=== PATIENT | male | born 1955 | race Caucasian/White ===

== ENCOUNTER 2021-08-31 16:02 | Inpatient (IN) | payer MEDICARE ==
[~2021-08-31] VITALS: Ht 193 cm; Wt 89.8 kg
[2021-09-01 06:12] LABS: HEMOGLOBIN 11.8 gm/dl (14.0-17.5); RED BLOOD COUNT 3.77 M/UL (4.20-5.50); WHITE BLOOD COUNT 15.2 K/UL (4.5-11.0)
[2021-09-01 06:49] LABS: BUN/CREATININE RATIO 21 (0-10)
[2021-09-01] MEDS ORDERED: PROAIR DIGIHAL90 MCG INH (09:45)
[2021-09-01] MEDS ORDERED: ANORO ELLIPTA1 EACH INH (09:46)
[2021-09-01] MEDS ORDERED: PROTONIX40 MG PO (09:46)
[2021-09-01] MEDS ORDERED: DAILY VALUE1 EACH PO (09:47)
[2021-09-02 05:58] LABS: BUN/CREATININE RATIO 29 (0-10)
[2021-09-02 06:06] LABS: RED BLOOD COUNT 3.25 M/UL (4.20-5.50)
[2021-09-03 05:44] LABS: BUN/CREATININE RATIO 28 (0-10)
[2021-09-04 05:46] LABS: RED BLOOD COUNT 2.73 M/UL (4.20-5.50)
[2021-09-04 06:03] LABS: BUN/CREATININE RATIO 28 (0-10)
[2021-09-05 05:40] LABS: HEMOGLOBIN 7.4 gm/dl (14.0-17.5); RED BLOOD COUNT 2.47 M/UL (4.20-5.50); WHITE BLOOD COUNT 5.6 K/UL (4.5-11.0)
[2021-09-05 06:10] LABS: BUN/CREATININE RATIO 36 (0-10)
[2021-09-06 05:16] LABS: BUN/CREATININE RATIO 39 (0-10)
[2021-09-06 09:35] LABS: HEMOGLOBIN 9.9 gm/dl (14.0-17.5); RED BLOOD COUNT 3.31 M/UL (4.20-5.50); WHITE BLOOD COUNT 9.1 K/UL (4.5-11.0)
[2021-09-07 05:18] LABS: HEMOGLOBIN 8.5 gm/dl (14.0-17.5); WHITE BLOOD COUNT 7.6 K/UL (4.5-11.0)
[2021-09-07 05:21] LABS: RED BLOOD COUNT 2.77 M/UL (4.20-5.50)
[2021-09-08 05:44] LABS: BUN/CREATININE RATIO 48 (0-10)
[2021-09-08 07:17] LABS: HEMOGLOBIN 8.1 gm/dl (14.0-17.5); RED BLOOD COUNT 2.68 M/UL (4.20-5.50); WHITE BLOOD COUNT 7.3 K/UL (4.5-11.0)
[2021-09-08 09:40] LABS: RED BLOOD COUNT 2.91 M/UL (4.20-5.50); WHITE BLOOD COUNT 8.6 K/UL (4.5-11.0)
--- NOTE | 2021-09-09 01:06 | NUR ---
02 SATS DECREASED TO 84-89% LUNG SOUNDS WITH RHONCHI AND RALES NOTED, RESPIRATIONS [address] WIGGINS NOTIFIED. ORDER RECEIVED . RESPIRATORY PRESENT, HIGH FLOW 02 APPLIED VIA CANNULA @12 LPM. STAT BNP ORDERED. WILL CONTINUE TO REMAIN AT BEDSIDE AND MONITOR.
--- NOTE | 2021-09-09 02:21 | NUR ---
RESTING EASIER . OUTPUT FROM [facility] > 1LITER @ THIS TIME. 02 SATS 99% . CURRENTLY WAITING ON BNP RESULTS.
[2021-09-09 05:31] LABS: HEMOGLOBIN 8.5 gm/dl (14.0-17.5); RED BLOOD COUNT 2.79 M/UL (4.20-5.50); WHITE BLOOD COUNT 10.8 K/UL (4.5-11.0)
[2021-09-09 05:43] LABS: BUN/CREATININE RATIO 43 (0-10)
[2021-09-10 08:41] LABS: BUN/CREATININE RATIO 46 (0-10)
[2021-09-11 04:23] LABS: HEMOGLOBIN 10.1 gm/dl (14.0-17.5)
[2021-09-11 04:25] LABS: RED BLOOD COUNT 3.3 M/UL (4.20-5.50); WHITE BLOOD COUNT 19.3 K/UL (4.5-11.0)
[2021-09-11 04:49] LABS: BUN/CREATININE RATIO 42 (0-10)
[2021-09-12 05:25] LABS: HEMOGLOBIN 9.8 gm/dl (14.0-17.5); RED BLOOD COUNT 3.23 M/UL (4.20-5.50); WHITE BLOOD COUNT 19.5 K/UL (4.5-11.0)
[2021-09-12 06:02] LABS: BUN/CREATININE RATIO 36 (0-10)
--- NOTE | 2021-09-12 16:52 | NUR ---
PATIENT ARRIVES ON FLOOR AT 1645 PER ICU STAFF. AGREE WITH ICU NURSE SERENA ASSESSMENT.
[2021-09-13 05:40] LABS: HEMOGLOBIN 10.2 gm/dl (14.0-17.5); RED BLOOD COUNT 3.37 M/UL (4.20-5.50); WHITE BLOOD COUNT 17.3 K/UL (4.5-11.0)
[2021-09-13 06:37] LABS: BUN/CREATININE RATIO 29 (0-10)
[2021-09-14 09:44] LABS: HEMOGLOBIN 10.1 gm/dl (14.0-17.5); RED BLOOD COUNT 3.3 M/UL (4.20-5.50); WHITE BLOOD COUNT 16.8 K/UL (4.5-11.0)
[2021-09-14 10:11] LABS: BUN/CREATININE RATIO 26 (0-10)
[2021-09-15 03:01] LABS: HEMOGLOBIN 9.6 gm/dl (14.0-17.5); RED BLOOD COUNT 3.15 M/UL (4.20-5.50); WHITE BLOOD COUNT 15.4 K/UL (4.5-11.0)
[2021-09-15 03:32] LABS: BUN/CREATININE RATIO 27 (0-10)
[2021-09-16 06:20] LABS: HEMOGLOBIN 8.9 gm/dl (14.0-17.5); RED BLOOD COUNT 3.02 M/UL (4.20-5.50); WHITE BLOOD COUNT 12.4 K/UL (4.5-11.0)
[2021-09-16 06:44] LABS: BUN/CREATININE RATIO 25 (0-10)
[2021-09-17 06:33] LABS: HEMOGLOBIN 8.7 gm/dl (14.0-17.5); RED BLOOD COUNT 2.88 M/UL (4.20-5.50)
[2021-09-17 07:04] LABS: BUN/CREATININE RATIO 23 (0-10)
[2021-09-18 04:44] LABS: RED BLOOD COUNT 2.98 M/UL (4.20-5.50); WHITE BLOOD COUNT 8.8 K/UL (4.5-11.0)
[2021-09-18 05:20] LABS: BUN/CREATININE RATIO 18 (0-10)
[2021-09-19 06:17] LABS: HEMOGLOBIN 9.9 gm/dl (14.0-17.5); WHITE BLOOD COUNT 7.7 K/UL (4.5-11.0)
[2021-09-19 06:19] LABS: RED BLOOD COUNT 3.34 M/UL (4.20-5.50)
[2021-09-19 06:40] LABS: BUN/CREATININE RATIO 16 (0-10)
[2021-09-20 07:36] LABS: HEMOGLOBIN 9.1 gm/dl (14.0-17.5); RED BLOOD COUNT 3.17 M/UL (4.20-5.50); WHITE BLOOD COUNT 7.6 K/UL (4.5-11.0)
[2021-09-20 07:59] LABS: BUN/CREATININE RATIO 14 (0-10)
[2021-09-21 04:02] LABS: BUN/CREATININE RATIO 14 (0-10)
--- NOTE | 2021-09-21 13:48 | NUR ---
PATIENT'S OXYGEN SATURATION 86% ON RA WITH AMBULATION AND TRANSFER FROM BED TO CHAIR.
[2021-09-21] MEDS ORDERED: LOPRESSOR 50 MG50 MG PO (14:09)
[2021-09-21] MEDS ORDERED: MYCOSTATIN100000 UTS PO (14:09)
[2021-09-21] MEDS ORDERED: FUROSEMIDE20 MG PO (14:09)
[2021-09-21] MEDS ORDERED: ATORVASTATIN CA20 MG PO (14:09)
[2021-09-21] MEDS ORDERED: AMIODARONE HCL200 MG PO (14:09)
[2021-09-21] MEDS ORDERED: ASPIRIN EC81 MG PO (14:09)
[2021-09-21] MEDS ORDERED: ACETAMINOPHEN-1 EAC1 PO (14:09)
[2021-09-21] MEDS ORDERED: BRILINTA 90 MG90 MG PO (14:09)
== END 2021-09-21 16:33 | disposition home health service (06) | DRG 270 ==
LOC: CCU 16:02 → MED SURG 4 16:02 → PROG CARE 16:02 → CDU 16:02 → CCU 22:01 → PROG CARE 09-12 16:39 → MED SURG 4 09-15 12:03
PROVIDERS: Internal Medicine; Internal Medicine Pulmonary Disease; Physician Assistant Medical; ADMIT Internal Medicine Cardiovascular Disease
PROC: 5A02210 Assistance with Cardiac Output using Balloon Pump, Continuous (ICD-10-PCS; 2021-08-31)
PROC: 027034Z Dilation of Coronary Artery, One Artery with Drug-eluting Intraluminal Device, Percutaneous Approach (ICD-10-PCS; 2021-08-31)
PROC: 3E02340 Introduction of Influenza Vaccine into Muscle, Percutaneous Approach (ICD-10-PCS; 2021-08-31)
PROC: 0BH17EZ Insertion of Endotracheal Airway into Trachea, Via Natural or Artificial Opening (ICD-10-PCS; 2021-08-31)
PROC: 5A1955Z Respiratory Ventilation, Greater than 96 Consecutive Hours (ICD-10-PCS; 2021-08-31)
PROC: B24BZZZ Ultrasonography of Heart with Aorta (ICD-10-PCS; 2021-08-31)
PROC: 4A023N7 Measurement of Cardiac Sampling and Pressure, Left Heart, Percutaneous Approach (ICD-10-PCS; 2021-08-31)
PROC: B2111ZZ Fluoroscopy of Multiple Coronary Arteries using Low Osmolar Contrast (ICD-10-PCS; 2021-08-31)
PROC: B2151ZZ Fluoroscopy of Left Heart using Low Osmolar Contrast (ICD-10-PCS; 2021-08-31)
PROC: 0DH63UZ Insertion of Feeding Device into Stomach, Percutaneous Approach (ICD-10-PCS; principal; 2021-09-05)
PROC: 3E0G76Z Introduction of Nutritional Substance into Upper GI, Via Natural or Artificial Opening (ICD-10-PCS; principal; 2021-09-05)
PROC: 5A09357 Assistance with Respiratory Ventilation, Less than 24 Consecutive Hours, Continuous Positive Airway Pressure (ICD-10-PCS; 2021-09-10)
PROC: 02703ZZ Dilation of Coronary Artery, One Artery, Percutaneous Approach (ICD-10-PCS; 2021-09-14)
PROC: 4A023N7 Measurement of Cardiac Sampling and Pressure, Left Heart, Percutaneous Approach (ICD-10-PCS; 2021-09-14)
PROC: B2111ZZ Fluoroscopy of Multiple Coronary Arteries using Low Osmolar Contrast (ICD-10-PCS; 2021-09-14)
PROC: 5A0935A Assistance with Respiratory Ventilation, Less than 24 Consecutive Hours, High Flow/Velocity Cannula (ICD-10-PCS; 2021-09-16)
DX: I21.09 ST elevation (STEMI) myocardial infarction involving other coronary artery of anterior wall (principal); R57.0 Cardiogenic shock; I50.21 Acute systolic (congestive) heart failure; Z20.822 Contact with and (suspected) exposure to COVID-19; J96.01 Acute respiratory failure with hypoxia; G92.8 Other toxic encephalopathy; J18.9 Pneumonia, unspecified organism; A41.9 Sepsis, unspecified organism; I47.1 Supraventricular tachycardia; J44.0 Chronic obstructive pulmonary disease with (acute) lower respiratory infection; B37.0 Candidal stomatitis; R47.01 Aphasia; E87.0 Hyperosmolality and hypernatremia; J44.1 Chronic obstructive pulmonary disease with (acute) exacerbation; C34.90 Malignant neoplasm of unspecified part of unspecified bronchus or lung; D62 Acute posthemorrhagic anemia; R04.89 Hemorrhage from other sites in respiratory passages; R53.81 Other malaise; F17.210 Nicotine dependence, cigarettes, uncomplicated; I11.0 Hypertensive heart disease with heart failure; E87.8 Other disorders of electrolyte and fluid balance, not elsewhere classified; F03.90 Unspecified dementia, unspecified severity, without behavioral disturbance, psychotic disturbance, mood disturbance, and anxiety; K21.9 Gastro-esophageal reflux disease without esophagitis; R27.0 Ataxia, unspecified; R13.10 Dysphagia, unspecified; E87.6 Hypokalemia; I48.0 Paroxysmal atrial fibrillation; I25.5 Ischemic cardiomyopathy; Z99.3 Dependence on wheelchair; Z79.01 Long term (current) use of anticoagulants; Z79.82 Long term (current) use of aspirin; Z82.49 Family history of ischemic heart disease and other diseases of the circulatory system; Z23 Encounter for immunization
CPT/HCPCS: ECHO; 31500; 36415; 36600; 70450; 71045; 72131; 74230; 80048; 80053; 80061; 80076; 80202; 81001; 82140; 82550; 82553; 82803; 82962; 83036; 83540; 83550; 83605; 83735; 83880; 84100; 84132; 84439; 84443; 84484; 84550; 85025; 85027; 85347; 86140; 87040; 87070; 87086; 87205; 90686; 92526; 92610; 92611-GN; 92920; 93005; 93306; 93308; 93880; 94002; 94003; 94640; 94660; 94664; 94760; 97110; 97110-GP-CQ; 97116; 97116-GP-CQ; 97162; 97166; 97530; 97530-GP-CQ; 97535; 99152; 99153; C1725; C1753; C1769; C1874; C1887; C1894; C9113; G0008; J0171; J0330; J0360; J0461; J0583; J0610; J1160; J1205; J1250; J1265; J1335; J1644; J1650; J1940; J2250; J2270; J2370; J2405; J2704; J3010; J3246; J3370; J3480; J7030; J7040; J7050; J7070; Q9965; Q9967

== ENCOUNTER → 2021-10-07 | Outpatient (CLI) | payer MEDICARE ==
[~2021-10-07] MED LIST: ACETAMINOPHEN-1 EAC1 PO; AMIODARONE HCL200 MG PO; ANORO ELLIPTA1 EACH INH; ASPIRIN EC81 MG PO; ATORVASTATIN CA20 MG PO; BRILINTA 90 MG90 MG PO; DAILY VALUE1 EACH PO; FUROSEMIDE20 MG PO; LOPRESSOR 50 MG50 MG PO; MYCOSTATIN100000 UTS PO; PROAIR DIGIHAL90 MCG INH; PROTONIX40 MG PO
[2021-10-07 13:45] LABS: BUN/CREATININE RATIO 19 (0-10)
== END ==
LOC: LAB 12:52
PROVIDERS: Internal Medicine Cardiovascular Disease
DX: Z00.00 Encounter for general adult medical examination without abnormal findings (principal); R06.02 Shortness of breath
CPT/HCPCS: 36415; 80048